=== PATIENT | male | born 1955 | race Caucasian/White ===

== ENCOUNTER 2020-01-18 09:51 | Observation (INO) ==
[2020-01-18] MEDS ORDERED: fentaNYL citrate 100 MCG/2 ML VIAL ONE (10:13)
[2020-01-18] MEDS ORDERED: MIDAZOLAM HCL 5 MG/ML 1 ML VIAL ONE (10:13)
--- NOTE | 2020-01-18 10:39 | Pre Anesthesia Assessment ---
Date of Service January 18, 2020 Pre Sedation Assessment Vital Signs Temp Pulse Resp BP Pulse Ox 01/18/20 10:05 36.9 C 82 18 129/71 96 Cardiovascular + regular rhythm Respiratory normal respiratory effort, lungs clear to auscultation Pre-Sedation Airway Assessment Smoking Status: Never smoker Short, Thick Neck: No Thyromental Distance: > or= 3.5 Finger Breadths Oral Cavity: + Dentures Mallampati Class: II ASA: ASA2 NPO Status Date of Last Intake of Fluids: 01/17/20 Time of Last Intake of Fluids: 18:00 Date of Last Intake of Solid Food: 01/17/20 Time of Last Intake of Solid Foods: 18:00 Procedure Planning Contraindications for Sedation: none Current Medications Reviewed: Yes Notes The planned sedation has been discussed with the patient. Informed Consent was obtained. I have identified the patient, determined the appropriateness of sedation and have assessed the patient immediately prior to the procedure. All medicine(s) and interventions are by my order.
--- NOTE | 2020-01-18 10:39 | History & Physical Bridge Note ---
Date of Service January 18, 2020 History & Physical Bridge Note I have examined the patient, reviewed the History & Physical and in the interval since the performance of the History & Physical I have noted the following changes of clinical significance: no changes noted
[2020-01-18] MEDS ORDERED: BUPIVACAINE 0.25% 30 ML VIAL ONE (10:47)
[2020-01-18] MEDS ORDERED: BACITRACIN INJ 50,000 UNIT VIAL ONE (10:47)
[2020-01-18] MEDS ORDERED: LIDOCAINE HCL 1% 20 ML VIAL ONE (10:47)
[2020-01-18] MEDS ORDERED: CEFAZOLIN 250 MG/ML 1 GM VIAL ONE (10:52)
--- NOTE | 2020-01-18 12:04 | Post Anesthesia Assessment ---
Date of Service January 18, 2020 Post Sedation Assessment Vital Signs Temp Pulse Resp BP Pulse Ox 01/18/20 10:05 36.9 C 82 18 129/71 96 Recovery Score Activity: Moves 4 extremities Respiration: Deep Breath/Cough Circulation: +/-20% PreAnes Value Consciousness: Fully Awake Oxygen Saturation: > 92% On Room Air Discharge Sedation Level of Care: Fast Track Phase II Post Sedation Plan On clinical assessment, the patient appears to have tolerated the sedation without complications. Patient is recovering as anticipated. Patient will continue to be monitored by nursing and may be discharged when sedation discharge criteria are met per below protocol. Upon Completions of procedure up to 15 minutes continue every 5 minute vital signs and the P.A.R. score; then discharge to a Phase I or Fast Track to Phase II per the following guidelines: * Discharge Patient to appropriate Phase II area if PAR is 8 or greater or return to pre- procedure baseline. The post - procedure orders will be as directed. * If PAR score is less than 8 or not return to pre-procedure baseline then patient will follow Phase I monitoring till PAR is reached for Phase II. The Phase I may be done in procedure room or may call to secure a Phase I area. * If naloxone or flumazenil are used for reversal, hold in Phase I for continued monitoring from when last reversal dose was given for a minimum of 60 minutes or longer pending the nurse and/or physician discretion of patient condition before discharge to Phase II. Please call the Sedation Physician to re-evaluate and complete post-note for discharge to Phase II area. Do NOT discharge from procedure sedation or Phase 1 until post- sedation evaluation note is complete by procedure /sedation MD Sedation Discharge Instructions to be given to the patient at discharge to home.
--- NOTE | 2020-01-18 12:05 | Operative Report ---
Post Operative Report Pre & Post Diagnosis ICM, SB Operation Date: 01/18/20 11:00 <No data on this case meets the specified criteria> I identified the patient and participated in the time-out.: Yes Procedure Operation Date: 01/18/20 11:00 Actual Procedures p ICD Insertion Dual - Lamar Car DO Surgeon Lamar Car, DO Meat Pickler none Estimated Blood Loss 15 Findings Consistent with Post-Op Diagnosis Specimens none Description of Procedure see official report I attest to the content of the Intraoperative Record and any orders documented therein. Any exceptions are noted below.
--- NOTE | 2020-01-18 12:12 | Discharge Summary ---
Date of Service January 19, 2020 Admission HPI Per Admitting Provider Pt presented for ICD Admission Exam Per Admitting Provider aaox3, NAD NC/AT, EOMI Supple No JVD Nrl S1/S2, No murmur CTA b/l no w/r/r soft nt/nd no LE edema b/l skin intact no focal deficits Principal Diagnosis ICM s/p ICD Discharge Exam aaox3, NAD NC/AT, EOMI Supple No JVD Nrl S1/S2, No murmur CTA b/l no w/r/r soft nt/nd no LE edema b/l skin intact no focal deficits left pectoral incision intact, no hematoma mild ecchymosis Discharge Data Allergies Allergy/AdvReac Type Severity Reaction Status Date / Time No Known Allergies Allergy Unverified 01/18/20 10:47 Procedures Performed Operation Date: 01/18/20 11:00 Actual Procedures p ICD Insertion Single or Dual - Lamar Car, Ordered Studies ICD Interrogation: Normal lead testing and function since implant CXR: No PTX, leads in position ECG: SR 01/18/20 06:35 CL Cath Imgs for PACS use only Routine Hospital Course (1) Ischemic cardiomyopathy: (2) Sinus bradycardia: (3) CAD (coronary artery disease): Total Time Total Time Spent Total Time Spent (In Minutes): 40 Total Time Includes: Examination of the Patient, Discharge Planning, Medication Reconciliation and Other Discharge Plan Discharge Items Patient Disposition: Home - Self-Care Reason For Visit: POST ICD INSERTION Discharge Diagnosis: ICM s/p ICD Condition on Discharge: Good Activity: As commented below Activity Comment: Do not lift the left elbow over the left shoulder for 1 month Lifting: No more than 10 pounds Lifting Comment: do not lift more than 10 pounds with the left arm for 2 weeks Bathing: Keep incision dry Bathing Comment: keep dressing on & dry until wound check next week Sexual Activity: After two weeks Non-emergency contact: Extruding Machine Operator Call non-emergency contact if: you have any medication questions Follow-up/Referrals: Ana Molina PA-C [Primary Care Provider] - Diet: Heart Healthy Addtl Attending Provider Instructions: Device and wound check next week in [facility] If you notice any swelling at the device region call [facility] Pending Studies at Discharge: No Stand-Alone Forms: My [facility] Medications and DC Order Prescriptions: Continued buspirone 5 mg Tablet 5 mg PO BID RF: 0 losartan 50 mg Tablet 50 mg PO DAILY RF: 0 escitalopram oxalate [Lexapro] 10 mg Tablet 10 mg PO DAILY RF: 0 famotidine 20 mg Tablet 20 mg PO DAILY RF: 0 metoprolol succinate 50 mg Tablet Extended Release 24 Hr 50 mg PO DAILY RF: 0 atorvastatin [Lipitor] 80 mg Tablet 80 mg PO DAILY RF: 0 aspirin [Aspirin Childrens] 81 mg Tablet,Chewable 81 mg PO DAILY RF: 0 diclofenac sodium [Voltaren] 1 % Gel 2 g TOPICAL BID RF: 0 nitroglycerin 0.4 mg Tablet, Sublingual USEASDIRECTD PRN (Reason: Chest Pain) RF: 0 Discharge Orders: Discharge Order (Routine); Ordered 01/19/20 Ordered By: Lamar Car Admission Data Admit Date/Time: 01/18/20 11:22 Attending Provider: Lamar Car Admit Provider: Lamar Car Primary Care Provider: Ana Molina
[2020-01-18] MEDS: ACETAMINOPHEN 325 MG TAB PO PRN (16:06)
[2020-01-18] MEDS: OXYCODONE/ACETAMINOPHEN 5mg/325mg TAB PO PRN ×2 (16:59→23:38)
--- NOTE | 2020-01-19 06:53 | Electrocardiogram Report ---
Test Reason : Blood Pressure : / mmHG Vent. Rate : 068 BPM Atrial Rate : 068 BPM P-R Int : 148 ms QRS Dur : 076 ms QT Int : 410 ms P-R-T Axes : 039 032 085 degrees QTc Int : 435 ms Normal sinus rhythm Possible Left atrial enlargement Anterior infarct , age undetermined Nonspecific T wave abnormality Abnormal ECG No previous ECGs available Confirmed by Jose David Braswell ([id number]) on 01/19/2020 6:52:48 AM Referred By: Lamar Car Confirmed By:Jose David Braswell
[2020-01-19] MEDS: ACETAMINOPHEN 325 MG TAB PO PRN (07:51)
[2020-01-19] MEDS ORDERED: ASPIRIN 81 MG ECTAB PO SCH (09:00)
[2020-01-19] MEDS ORDERED: METOPROLOL SUCC 50MG EXT REL TAB PO SCH (09:00)
[2020-01-19] MEDS ORDERED: ATORVASTATIN 40 MG TAB PO SCH (09:00)
[2020-01-19] MEDS ORDERED: LOSARTAN POTASSIUM 50 MG TAB PO SCH (09:00)
[2020-01-19] MEDS ORDERED: FAMOTIDINE 20 MG TAB PO SCH (09:00)
[2020-01-19] MEDS ORDERED: ESCITALOPRAM OXALATE 10 MG TAB PO SCH (09:00)
--- NOTE | 2020-01-19 09:00 | XRay Report ---
XR chest 2V PA/lateral CLINICAL HISTORY: post icd COMPARISON STUDY: No previous studies for comparison. FINDINGS: Permanent bipolar cardiac pacemaker. Leads are in good position. Atelectasis left base. No evidence for pneumothorax. Right lung is clear. IMPRESSION: Bipolar cardiac pacemaker leads in good position. No evidence for pneumothorax. Atelecta sis left base. ACT 112: Negative or not required by law. The above report was generated using voice recognition software. It may contain grammatical, syntax or spelling errors. Electronically signed by: Luis Finley M.D. 01/19/2020 8:59 AM
--- NOTE | 2020-01-19 18:13 | Operative Report (OR) ---
DATE OF OPERATION: 01/18/2020 PREOPERATIVE DIAGNOSES: Ischemic cardiomyopathy and sinus bradycardia. POSTOPERATIVE DIAGNOSES: Ischemic cardiomyopathy and sinus bradycardia. PROCEDURE: Dual chamber rate responsive permanent implantable cardiac defibrillator under fluoroscopic guidance. SURGEON: Lamar Car DO. BIOMEDICAL FIELD SERVICE ENGINEER: None. ANESTHESIA: Monitored conscious sedation administered under my supervision by Blanche Pizarro. Start time 10:59, end time 11:59, a total 0.3 mg of Versed and 75 mcg of fentanyl. INTRAVENOUS FLUIDS: 30 mL ANTIBIOTICS: 1 gram of Ancef. BLOOD LOSS: 20 mL. URINE OUTPUT: Not applicable. SPECIMENS: None. FINDINGS: See below. DRAINS: None. INDICATIONS: This is a 64-year-old gentleman with past medical history for ischemic cardiomyopathy, ejection fraction was 42% back in 02/2016, it is now 30-34% by an echo in 08/2019 and the nuclear showing old scar. He also has sinus bradycardia, coronary artery disease, history of a STEMI in 03/2012 where he got a PCI to the proximal LAD. He also had a PHYSICAL SECURITY ENGINEER in the mid RCA with collaterals from the left to the right and the circumflex had mild disease, hypertension, hyperlipidemia, esophageal stricture status post dilatation in 2013, obstructive sleep apnea where he needs CPAP. Due to the ischemic cardiomyopathy and sinus bradycardia, he was recommended dual chamber ICD. CONSENT: Consent was obtained prior to the patient going into electrophysiology lab. The patient was informed of the risks, benefits and alternative procedure. Risks include but not limited to sudden cardiac , cardiac arrhythmias, cerebrovascular accident, myocardial infarction, , bleeding and infection and injury to the chambers of the heart, lungs and blood vessels. The patient understood these risks and agrees to the procedure as planned. Informed consent was obtained. DESCRIPTION OF THE PROCEDURE: The patient was brought into the electrophysiology lab in a fasting state. He was connected to continuous cardiac rehab nurse. Timeout was performed to ensure patient identity and procedure correctly. The patient was prepped and draped over the left infraclavicular space in normal surgical standard fashion. Monitored conscious sedation was given throughout the procedure for patient's comfort level. Clune precautions were maintained throughout the procedure. 20 mL of 1% lidocaine, bupivacaine mixture were given in the left deltopectoral groove. Incision was made in left deltopectoral groove. Blunt dissection performed down to identify cephalic vein. Cephalic vein was identified and isolated using 0 silk ties. The vein was nicked with 11 blade and a guidewire was inserted without any resistance. An 8-Serbian sheath was inserted over the guidewire without any resistance. Dilator was removed and a second guidewire was inserted through this sheath to allow for retained venous access. Sheath was removed and then a 9.5-Serbian sheath was inserted through the guidewire without any resistance. Guidewire and dilator removed. The right ventricular lead was then advanced into right ventricle and positioned in the low right ventricular septum region under fluoroscopic guidance. There was adequate pacing and sensing thresholds and no diaphragmatic stimulation with high output pacing. The 9.5-Serbian sheath was peeled away and lead was fixated to pectoralis muscle using 0 silk suture. An 8-Serbian sheath was inserted over the retained guidewire without any resistance. Guidewire and dilator removed. The right atrial lead was advanced into right atrium and positioned interatrial appendage under fluoroscopic guidance. There was adequate pacing and sensing thresholds and no diaphragmatic stimulation with high output pacing. The 8-Serbian sheath was peeled away and lead was fixated to pectoralis muscle using 0 silk suture. Of note, I did have to reposition the atrial lead secondary to it being dislodged. A pursestring was placed around the venous puncture site to stop any backbleeding. Then an additional 5 mL of 1% lidocaine, bupivacaine mixture were given over the pectoralis muscle and then the pectoralis fascia and then a blunt dissection was performed to create a defibrillator pocket. The pocket was flushed with copious amounts of bacitracin saline wash and inspected for hemostasis. Pulse generator was then attached to leads making sure that the leads were in appropriate position, passed set screws and set screws were all tightened. Pulse generator was then placed in the pocket, making sure that the leads were lying flat beneath the device. The incision was closed in 3-layer fashion with 2-0 Vicryl interrupted suture followed by 3-0 Vicryl interrupted suture, followed by 4-0 Monocryl running stitch and Dermabond was applied followed by a Telfa and micropore dressing. EQUIPMENT: 1. Pulse generator is a Medtronic Evera MRI XTDR SureScan QTCL2Y7, serial number [id number]. 2. Right atrial lead Medtronic 5076-52 cm, serial number [id number]. 3. Right ventricular lead, Medtronic 6935-62 cm, serial number [id number]. INTRAOPERATIVE TESTIN. Right atrial lead: P-wave 5.6 millivolts, impedance 672 ohms, threshold 0.6 volts at 0.4 milliseconds. 2. Right ventricular lead: R waves 11.3 millivolts, impedance 642 ohms, threshold 0.5 volts at 0.4 milliseconds. FINAL MEASUREMENTS THROUGH THE DEVICE: 1. Right atrial lead: P waves 4.1 millivolts, impedance 475 ohms, threshold 0.75 volts at 0.4 milliseconds. 2. Right ventricular lead: R waves 12.1 millivolts, impedance 513 ohms, threshold 0.5 volts at 0.4 milliseconds. FINAL PARAMETERS: MVP-R 60/130, right atrial amplitude 3, and right ventricular amplitude 3.5 volts, pulse width 0.4 milliseconds, sensitivity 0.3 millivolts, a VT monitor zone at 140 beats per minute for 32 detection intervals, VT zone at 167 beats per minute for 16 detection intervals and VF zone at 200 beats per minute for 30/40 detection intervals. IMPRESSION: Successful implantation of a dual chamber implantable cardiac defibrillator under fluoroscopic guidance secondary to sinus bradycardia and ischemic cardiomyopathy. PLAN: Monitor patient overnight, 12-lead ECG, chest x-ray. He is not allowed to lift left elbow or left shoulder for 1 month. He cannot lift more than 10 pounds with the left arm for 2 weeks. He is to keep the dressing on and dry until his wound check next week. I attest to the content of the Intraoperative Record and any orders documented therein. Any exception s are noted below.
== END 2020-01-19 10:46 | disposition home or self-care (01) ==
LOC: 2S 09:51 → EP 09:51
PROC: EPB.ICD (2020-01-18 11:00)